=== PATIENT | male | born 1995 | race Caucasian/White ===

== ENCOUNTER 2018-01-14 14:38 | Emergency (ER) | payer BC ==
[~2018-01-14] VITALS: Ht 172.7 cm; Wt 93.0 kg
[2018-01-14 14:45] VITALS: BP 150/73; PULSE 78; RESP 18; TEMP 97.8; O2SAT 100
--- NOTE | 2018-01-14 14:51 | PD ---
HPI Chief Complaint: GI Complaint Time Seen by Provider: 14:49 Travel History International Travel<30 days: Yes Contact w/Intl Traveler<30days: Yes Name of Country Traveled to: [facility] RETURNED 01/14/18 Traveled to known affect area: Yes History of Present Illness HPI Patient came in today stating that he had 1 day onset of painless bright red blood per rectum 1. Patient denies any abdominal pain nausea vomiting or diarrhea. Patient also denies having any alleviating or aggravating factors. Patient also denies any associated factors such as fever, rash, sore throat/ cough/runny nose, hematuria/dysuria/frequency/urgency. Patient became concerned and decided to come in to be evaluated rather than wait to see his primary. No known drug allergy Patient denies any past medical or surgical history PFSH Social History Tobacco Use: No Allergies-Medications (Allergen,Severity, Reaction): Coded Allergies: No Known Allergies (Unverified , 01/14/18) Reported Meds & Prescriptions Reported Meds & Active Scripts Active No Active Prescriptions or Reported Medications Review of Systems General / Constitutional: No: Fever Eyes: No: Visual changes HENT: No: Headaches Cardiovascular: No: Chest Pain or Discomfort Respiratory: No: Shortness of Breath Gastrointestinal: Positive: Hematochezia Genitourinary: No: Dysuria Musculoskeletal: No: Pain Skin: No Rash Neurologic: No: Weakness Psychiatric: No: Depression Endocrine: No: Polydipsia Hematologic/Lymphatic: No: Easy Bruising Physical Exam Narrative GENERAL: SKIN: Warm and dry. HEAD: Atraumatic. Normocephalic. EYES: Pupils equal and round. No scleral icterus. No injection or drainage. ENT: No nasal bleeding or discharge. Mucous membranes pink and moist. NECK: Trachea midline. No JVD. CARDIOVASCULAR: Regular rate and rhythm. RESPIRATORY: No accessory muscle use. Clear to auscultation. Breath sounds equal bilaterally. GASTROINTESTINAL: Abdomen soft, non-tender, nondistended. Nurse Kyara at bedside: Guaiac-positive Hemoccult, internal hemorrhoid at 6:00, no active bleeding MUSCULOSKELETAL: Extremities without clubbing, cyanosis, or edema. No obvious deformities. NEUROLOGICAL: Awake and alert. No obvious cranial nerve deficits. Motor grossly within normal limits. Five out of 5 muscle strength in the arms and legs. Normal speech. PSYCHIATRIC: Appropriate mood and affect; insight and judgment normal. Data Data Last Documented VS Vital Signs Date Time Temp Pulse Resp B/P (MAP) Pulse Ox O2 Delivery O2 Flow Rate FiO2 01/14/18 14:45 97.8 78 18 150/73 (98) 100 MDM Medical Decision Making Medical Screen Exam Complete: Yes Emergency Medical Condition: Yes Medical Record Reviewed: Yes Differential Diagnosis Anal fissure versus external hemorrhoid versus colitis Narrative Course Clinically the patient has nonthrombosed internal hemorrhoids that were palpable , no evidence of any active bleeding. Diagnosis Primary Impression: Hemorrhoid Patient Instructions: General Instructions, Hemorrhoids (ED) Scripts No Active Prescriptions or Reported Meds Disposition: 01 DISCHARGE HOME Condition: Stable Shaan Willoughby MD Jan 14, 2018 14:50
== END 2018-01-14 15:38 | disposition home or self-care (01) ==
LOC: NEPC 14:38
DX: K64.8 Other hemorrhoids (principal)
CPT/HCPCS: 99281